=== PATIENT | male | born 1995 | race African-American/Black ===

== ENCOUNTER 2016-08-25 15:46 | Emergency (ER) | payer OTHER ==
[~2016-08-25] VITALS: Ht 175.3 cm; Wt 98.4 kg
[2016-08-25 16:06] VITALS: TEMP 37.1; Ht 175.3 cm; Wt 98.4 kg
[2016-08-25 16:42] LABS: HEMATOCRIT 41.9 % (42-52); MEAN CELL VOLUME 80.1 fL (80-100); MEAN CORPUSCULAR HEMOGLOBIN 26.6 pg (25-34); MEAN CORPUSCULAR HGB CONC 33.2 g/dl (32-36); MEAN PLATELET VOLUME 10.3 fL (7.4-10.4); PLATELET COUNT 309 K/uL (130-400); RED BLOOD COUNT 5.23 M/uL (4.7-6.1); WHITE BLOOD COUNT 5.91 K/uL (4.8-10.8)
[2016-08-25 16:59] LABS: ALT/SGPT 48 U/L (12-78); AST/SGOT 33 U/L (15-37); BLOOD UREA NITROGEN 13 mg/dl (7-18); CALCIUM 8.8 mg/dl (8.5-10.1); CARBON DIOXIDE 26 mmol/L (21-32); CHLORIDE 105 mmol/L (98-107); GLUCOSE 117 mg/dl (70-99); POTASSIUM 3.6 mmol/L (3.5-5.1); SODIUM 141 mmol/L (136-145)
[2016-08-25 17:10] LABS: ALKALINE PHOSPHATASE 111 U/L (45-117); THYROID STIMULATING HORMONE 0.682 uIu/ml (0.300-4.500)
[2016-08-25 17:38] LABS: ACETAMINOPHEN < 2 ug/ml (10-30)
[2016-08-25 18:19] LABS: BENZODIAZEPINE, URINE NEG (NEG); COCAINE,URINE NEG (NEG); PHENCYCLIDINE, URINE NEG (NEG)
--- NOTE | 2016-08-25 21:22 | EMERGENCY ROOM VISIT NOTE ---
History Report prepared by James: Chapincito Lopez Under the Supervision of: Dr. Andrei Brownlee M.D. First contact with patient: 16:08 Chief Complaint: MENTAL HEALTH EVALUATION Stated Complaint: VOLUNTARY COMMITMENT History of Present Illness The patient is a 21 year old male who presents to the Emergency Room with complaints of persistently hearing voices in his head for the past few months. The patient notes that these symptoms have been worsening since the summer when they started. He voluntarily presented to [facility] at [facility] earlier today and they recommended that he present to the ED for further evaluation. He describes the voices as being from his peers telling him to do things. However, he denies that they tell him to hurt anyone or himself. The patient also complains of some depression. He notes that he is also failing some of his classes. He denies any prior diagnoses or treatment for his symptoms , alcohol or drug use at this time, suicidal ideation, or family history of schizophrenia. He also denies any other medical issues at this time. [facility] was evaluated by [facility] who recommended that he receive inpatient treatment on a voluntary basis. Source of History: patient Onset: past few months Position: head Quality: other (Hearing voices) Timing: worsening, other (persistently) Associated Symptoms: No fevers Note: Other associated symptoms: depression Denies: any other medical issues at this time. Review of Systems See HPI for pertinent positives & negatives. A total of 10 systems reviewed and were otherwise negative. Past Medical & Surgical Medical Problems: (1) No Known Active Medical Problems Family History Patient reports no known family medical history. Social History Smoking Status: Never Smoker Alcohol Use: none Drug Use: none Housing Status: lives with roommate Occupation Status: [employer] student Current/Historical Medications No Active Prescriptions or Reported Meds Allergies Coded Allergies: No Known Allergies (Unverified , 08/25/16) Physical Exam Vital Signs Date Time Temp Pulse Resp B/P Pulse Ox O2 Delivery O2 Flow Rate FiO2 08/25/16 17:40 56 14 130/84 98 Room Air 08/25/16 16:06 37.1 64 14 115/70 99 Room Air Physical Exam Constitutional: Vital signs reviewed. Eyes: Pupils are equal round reactive to light. Conjunctiva are noninjected. ENT: Pharynx is clear without erythema or exudate. Mucous membranes are moist. Neck supple without meningeal signs. Respiratory: Clear to auscultation bilaterally. Breath sounds are equal bilaterally. Cardiovascular: Regular rate and rhythm. No rubs or gallops. GI: Soft, nondistended and nontender. Bowel sounds are present. Musculoskeletal: No peripheral edema. Integumentary: No cyanosis. Neurological: The patient is awake and alert. No focal deficits. Psychiatric: Normal affect. Not tearful or hostile. Medical Decision & Procedures Laboratory Results 08/25/16 16:31 08/25/16 16:31 Test 08/25/16 16:31 08/25/16 17:15 Red Blood Count 5.23 M/uL (4.7-6.1) Mean Corpuscular Volume 80.1 fL (80-100) Mean Corpuscular Hemoglobin 26.6 pg (25-34) Mean Corpuscular Hemoglobin Concent 33.2 g/dl (32-36) RDW Standard Deviation 39.1 fL (36.4-46.3) RDW Coefficient of Variation 13.4 % (11.5-14.5) Mean Platelet Volume 10.3 fL (7.4-10.4) Anion Gap 10.0 mmol/L (3-11) Est Creatinine Clear Calc Drug Dose 123.9 ml/min Estimated GFR () 111.4 Estimated GFR (Non- 96.1 BUN/Creatinine Ratio 12.0 (10-20) Calcium Level 8.8 mg/dl (8.5-10.1) Total Bilirubin 0.5 mg/dl (0.2-1) Direct Bilirubin < 0.1 mg/dl (0-0.2) Aspartate Amino Transf (AST/SGOT) 33 U/L (15-37) Alanine Aminotransferase (ALT/SGPT) 48 U/L (12-78) Alkaline Phosphatase 111 U/L (45-117) Total Protein 7.6 gm/dl (6.4-8.2) Albumin 3.6 gm/dl (3.4-5.0) Thyroid Stimulating Hormone (TSH) 0.682 uIu/ml (0.300-4.500) Salicylates Level < 1.7 mg/dl (2.8-20) Acetaminophen Level < 2 ug/ml (10-30) Ethyl Alcohol mg/dL < 3.0 mg/dl (0-3) Urine Opiates Screen NEG (NEG) Urine Methadone, Qualitative NEG (NEG) Urine Barbiturates NEG (NEG) Urine Phencyclidine (PCP) Level NEG (NEG) Ur Amphetamine/Methamphetamine NEG (NEG) MDMA (Ecstasy) Screen NEG (NEG) Urine Benzodiazepines Screen NEG (NEG) Urine Cocaine Metabolite NEG (NEG) Urine Marijuana (THC) NEG (NEG) Laboratory results as reviewed by me. ED Course 1610: The patient was evaluated in room A6. A complete history and physical exam was performed. 194: At this time, the patient was transferred to [facility]. Medical Decision This is a 21-year-old male presents for mental health evaluation. I did perform a limited focused review of portions of the patient's old chart on the electronic medical record. The patient has had no visits to this hospital. I did evaluate the patient as noted above. The patient was evaluated by [facility] and [facility] and was sent here for inpatient psychiatric care. The patient denies any physical complaints. He does complain of auditory hallucinations. I did order and review the patient's blood work as noted in the electronic medical record. I did medically clear the patient. The patient was accepted by [facility]. He was transferred to [facility] securely. Impression Primary Impression: Thought disorder Additional Impression: Auditory hallucinations Scribe Attestation The scribe's documentation has been prepared under my direct and personally reviewed by me in its entirety. I confirm that the note above accurately reflects all work, treatment, procedures, and medical decision making performed by me. Departure Information Dispostion Mental [facility] Acute Care ([facility]) Prescriptions No Active Prescriptions or Reported Meds Referrals No Doctor, Assigned (PCP) Forms HOME CARE DOCUMENTATION FORM, IMPORTANT VISIT INFORMATION Problem Qualifiers
[2016-08-25 21:43] VITALS: BP 127/74; PULSE 65; O2SAT 100
== END 2016-08-25 21:30 ==
LOC: C.EDB 15:49 → C.EDA 21:30
DX: R44.0 Auditory hallucinations (principal); F99 Mental disorder, not otherwise specified